=== PATIENT | female | born 1970 | race Caucasian/White ===

== ENCOUNTER 2021-05-09 16:22 | Emergency (ER) | payer OTHER ==
[~2021-05-09] VITALS: Ht 154.9 cm; Wt 736.2 kg
[2021-05-09 16:54] VITALS: BP_SYST 152
[2021-05-09 18:04] LABS: BASOPHILS # (AUTO) 0.1 K/uL (0.0-0.2); BASOPHILS % (AUTO) 0.7 % (0.0-2.0); EOSINOPHILS # (AUTO) 0.3 K/uL (0.0-0.4); EOSINOPHILS % (AUTO) 1.9 % (0.0-4.0); HEMATOCRIT 44.2 % (36-48); HEMOGLOBIN 15.1 g/dL (12.0-16.0); LYMPHOCYTES # (AUTO) 5.2 K/uL (1.0-5.5); LYMPHOCYTES % (AUTO) 33.3 % (20.5-51.5); MEAN CORPUSCULAR HEMOGLOBIN 31 pg (27-31); MEAN CORPUSCULAR HGB CONC 34 % (32-36); MEAN CORPUSCULAR VOLUME 92 fL (79.0-98.0); MONOCYTES # (AUTO) 1.2 K/uL (0.0-1.0); MONOCYTES % (AUTO) 7.5 % (1.7-9.3); NEUTROPHILS # (AUTO) 8.8 K/uL (1.8-7.7); NEUTROPHILS % (AUTO) 56.6 % (40.0-70.0); PLATELET COUNT (AUTO) 294 K/uL (130-430); WHITE BLOOD COUNT (AUTO) 15.6 K/uL (4.8-10.8)
[2021-05-09 18:10] LABS: BILIRUBIN,URINE NEGATIVE (NEGATIVE); BLOOD, URINE 1+ (NEGATIVE); CLARITY/URINE CLEAR (CLEAR); GLUCOSE,URINE NEGATIVE (NEGATIVE); KETONES,URINE NEGATIVE (NEGATIVE); LEUKOCYTE ESTERASE ,URINE NEGATIVE (NEGATIVE); NITRITE, URINE NEGATIVE (NEGATIVE); PROTEIN URINE NEGATIVE (NEGATIVE); UROBILINOGEN,URINE 0.2 (0.2-1.0)
[2021-05-09 18:28] LABS: COLOR,URINE STRAW (YELLOW)
[2021-05-09 18:54] LABS: CALCIUM 9.3 mg/dL (8.4-11.0); CREATININE 0.79 mg/dL (0.55-1.30); POTASSIUM 3.9 mmol/L (3.5-5.1)
[2021-05-09 19:00] LABS: ALBUMIN 4.1 g/dL (3.4-4.8); TOTAL BILIRUBIN 0.3 mg/dL (0.0-1.0)
--- NOTE | 2021-05-09 19:30 | NUR ---
Patient to ER bed HALLWAY 2 to gown for evaluation. Side rails up.
--- NOTE | 2021-05-09 19:35 | NUR ---
DR. GORMAN AT BEDSIDE FOR EVALUATION.
--- NOTE | 2021-05-09 19:41 | NUR ---
PATIENT TAKEN TO CT SCAN VIA WHEELCHAIR BY RADIOLOGY STAFF.
[2021-05-09] MEDS ORDERED: KETOROLAC TROMETHAMINE 60 MG/2 ML VIAL IM ONE (19:45)
--- NOTE | 2021-05-09 19:50 | NUR ---
PATIENT AAOX4 AND AMBULATORY C/O LOWER BACK PAIN D/T INJURY AFTER LIFTING A HEAVY OBJECT. STILL ABLE TO AMBULATE. PAIN DOES NOT RADIATE. INJURY HAPPENED ON SATURDAY. CURRENTLY STATING 8/10 ON THE PAIN SCALE. VSS
--- NOTE | 2021-05-09 20:13 | NUR ---
MEDICATION ADMINISTERED ORDERED.
[2021-05-09 20:35] LABS: BACTERIA,URINE RARE /HPF (None Seen); RBC,URINE 0-3 /HPF (0-3); WBC,URINE NONE SEEN /HPF (0-3)
[2021-05-09] MEDS ORDERED: HYDR-3917 PO (21:21)
[2021-05-09] MEDS ORDERED: IBUP-1969 PO (21:21)
[2021-05-09] MEDS ORDERED: HYDROcodone/ACETAMIN 10-325 MG TAB PO ONE (21:30)
--- NOTE | 2021-05-09 21:31 | NUR ---
DR. GORMAN TO REASSESS PATIENT AT BEDSIDE.
--- NOTE | 2021-05-09 21:36 | NUR ---
MEDICATION ADMINISTERED. AWAITING FOR DISPOSITION.
[2021-05-09 21:46] VITALS: BP_SYST 152
--- NOTE | 2021-05-09 21:47 | NUR ---
Patient given written and verbal discharge instructions and verbalizes understanding. DR. SHERIF CHAIDEZ MD discussed with patient the results and treatment provided. Patient in stable condition. ID arm band removed. Rx of IBUPROFEN, NORCO given. Patient educated on pain management and to follow up with PMD. Pain Scale 0/10. Opportunity for questions provided and answered. Medication side effect fact sheet provided.
== END 2021-05-09 21:46 | disposition home or self-care (01) ==
LOC: SED 16:22
DX: N23 Unspecified renal colic (principal)
CPT/HCPCS: 36415; 74176; 76376; 80053; 81000; 85025; 96372; 99284; J1885

== ENCOUNTER 2022-01-10 14:28 | Emergency (ER) | payer OTHER ==
[~2022-01-10] VITALS: Ht 154.9 cm; Wt 73.0 kg
[~2022-01-10 14:28] MED LIST: HYDR-3917 PO; IBUP-1969 PO
[2022-01-10 14:30] VITALS: BP_SYST 164
--- NOTE | 2022-01-10 14:35 | NUR ---
Patient triaged and placed in waiting room. VSS and patient appears in no acute distress at this time. Accompanied by SELF, awaiting available bed, and MD notified of need for MSE.
--- NOTE | 2022-01-10 15:25 | NUR ---
BROUGHT BACK TO BED #8 AND REPORT GIVEN TO REYES
--- NOTE | 2022-01-10 15:35 | NUR ---
[facility]ED [facility], DR CHANDRA AT BEDSIDE FOR EVALUATION
--- NOTE | 2022-01-10 15:55 | NUR ---
PT STATES SHE HAS HAD A LUMP UNDER RIGHT BREAST FOR LAST 2 MONTHS, PT STATES SHE HAS BEEN TO URGENT CARE AND TAKING MEDS BUT STILL HAS A LUMP. PT STATES PAIN LEVEL A 5/10
[2022-01-10] MEDS ORDERED: LIDOINT TP (16:16)
[2022-01-10] MEDS ORDERED: ACET-2634 PO (16:16)
[2022-01-10] MEDS ORDERED: METH-634 PO (16:16)
--- NOTE | 2022-01-10 16:21 | NUR ---
Patient given written and verbal discharge instructions and verbalizes understanding. ER MD discussed with patient the results and treatment provided. Patient in stable condition. ID arm band removed Rx of TYLENOL XTRA STRENGTH, ROBAXIN, LIDOCAINE given. Patient educated on pain management and to follow up with PMD. Pain Scale 0/10. Opportunity for questions provided and answered. Medication side effect fact sheet provided.
== END 2022-01-10 16:24 | disposition home or self-care (01) ==
LOC: SED 14:28
DX: S29.011A Strain of muscle and tendon of front wall of thorax, initial encounter (principal); Z79.899 Other long term (current) drug therapy; X50.0XXA Overexertion from strenuous movement or load, initial encounter; Y93.89 Activity, other specified; Y92.89 Other specified places as the place of occurrence of the external cause; Y99.8 Other external cause status
CPT/HCPCS: 71100; 99283

== ENCOUNTER 2022-03-04 10:58 | Emergency (ER) | payer OTHER ==
[~2022-03-04] VITALS: Ht 154.9 cm; Wt 73.0 kg
[~2022-03-04 10:58] MED LIST changes: +ACET-2634 PO; +LIDOINT TP; +METH-634 PO
[2022-03-04 11:05] VITALS: BP_SYST 157
--- NOTE | 2022-03-04 11:12 | NUR ---
PT TRIAGED AND PLACED IN ED LOBBY FOR AVAILABLE BED IN MAIN ED, MADE AWARE OF MSE NEEDS
--- NOTE | 2022-03-04 11:15 | NUR ---
ER DR. KONG EXAMINING PT IN TRIAGE
--- NOTE | 2022-03-04 11:39 | NUR ---
PT TO LAB FOR BLOOD DRAW
--- NOTE | 2022-03-04 11:49 | NUR ---
Patient transported to radiology via AMBULATION, accompanied by STAFF.
--- NOTE | 2022-03-04 11:56 | NUR ---
Placed in room 2 . Placed on classroom monitor, blood pressure machine and pulse oximeter. To gown for exam. Side rails up. Report given to GARRY REYNOLDS.
--- NOTE | 2022-03-04 12:00 | NUR ---
MD KONG AT BEDSIDE FOR REASSESS. PT VSS. AWAITING LAB AND URINE RESULTS. WILL CONT TO MONITOR PT.
[2022-03-04 12:10] LABS: BASOPHILS # (AUTO) 0.1 K/uL (0.0-0.2); BASOPHILS % (AUTO) 0.6 % (0.0-2.0); EOSINOPHILS # (AUTO) 0.2 K/uL (0.0-0.4); EOSINOPHILS % (AUTO) 1.4 % (0.0-4.0); HEMATOCRIT 45.1 % (36-48); HEMOGLOBIN 15.5 g/dL (12.0-16.0); LYMPHOCYTES % (AUTO) 23.4 % (20.5-51.5); MEAN CORPUSCULAR HEMOGLOBIN 32 pg (27-31); MEAN CORPUSCULAR HGB CONC 34 % (32-36); MEAN CORPUSCULAR VOLUME 92 fL (79.0-98.0); MONOCYTES # (AUTO) 0.7 K/uL (0.0-1.0); MONOCYTES % (AUTO) 5.4 % (1.7-9.3); NEUTROPHILS # (AUTO) 8.9 K/uL (1.8-7.7); NEUTROPHILS % (AUTO) 69.2 % (40.0-70.0); PLATELET COUNT (AUTO) 276 K/uL (130-430); RED CELL DISTRIBUTION WIDTH 13.2 % (9.0-15.0); WHITE BLOOD COUNT (AUTO) 12.8 K/uL (4.8-10.8)
[2022-03-04 12:12] LABS: BILIRUBIN,URINE 1+ (NEGATIVE); BLOOD, URINE NEGATIVE (NEGATIVE); COLOR,URINE YELLOW (YELLOW); GLUCOSE,URINE NEGATIVE (NEGATIVE); KETONES,URINE TRACE (NEGATIVE); LEUKOCYTE ESTERASE ,URINE NEGATIVE (NEGATIVE); NITRITE, URINE NEGATIVE (NEGATIVE); PROTEIN URINE NEGATIVE (NEGATIVE); UROBILINOGEN,URINE 0.2 (0.2-1.0)
[2022-03-04 12:24] LABS: ANION GAP 5 (5-15); CALCIUM 9.1 mg/dL (8.4-11.0); CHLORIDE 105 mmol/L (98-107); CREATININE 0.86 mg/dL (0.55-1.30); GLUCOSE 94 mg/dL (70-99); POTASSIUM 4.1 mmol/L (3.5-5.1); SODIUM SERUM 139 mmol/L (136-145); UREA NITROGEN, BLOOD 8 mg/dL (8-21)
[2022-03-04 12:28] LABS: CLARITY/URINE HAZY (CLEAR)
[2022-03-04 12:32] LABS: ALANINE AMINOTRANSFERASE 25 U/L (12-78); AMYLASE 45 U/L (0-100); ASPARTATE AMINOTRANSFERASE 21 U/L (10-37); LIPASE 64 U/L (73-393); TOTAL BILIRUBIN 0.5 mg/dL (0.0-1.0)
[2022-03-04 12:36] LABS: GFR AFRICAN AMERICAN 89 mL/min (>90)
[2022-03-04 12:38] LABS: C-REACTIVE PROTEIN QUANT < 0.2 mg/dL (0-0.5)
[2022-03-04 12:52] LABS: BACTERIA,URINE FEW /HPF (None Seen); RBC,URINE 0-3 /HPF (0-3); WBC,URINE 0-3 /HPF (0-3)
[2022-03-04] MEDS ORDERED: TRAM50TA2 PO (13:18)
[2022-03-04] MEDS ORDERED: OMEP20CA15 PO (13:18)
--- NOTE | 2022-03-04 13:25 | NUR ---
PT DISCHARGED GIVEN ACI AND PRESCRIPTION. VSS. NAD NOTED. ALL QUESTIONS ANSWERED. WRIST BAND REMOVED. PT AMBULATED TO EXIT.
[2022-03-04 13:30] VITALS: BP_SYST 138
== END 2022-03-04 13:30 | disposition home or self-care (01) ==
LOC: SED 10:58
DX: N23 Unspecified renal colic (principal); K29.70 Gastritis, unspecified, without bleeding; Z79.899 Other long term (current) drug therapy
CPT/HCPCS: 36415; 76376; 80053; 81000; 82150; 83605; 83690; 84484; 84703; 85025; 86140; 99285

== ENCOUNTER 2022-04-14 09:35 | Emergency (ER) | payer OTHER ==
[~2022-04-14] VITALS: Ht 154.9 cm; Wt 72.6 kg
[~2022-04-14 09:35] MED LIST changes: +OMEP20CA15 PO; +TRAM50TA2 PO
[2022-04-14 09:48] VITALS: BP_SYST 145
--- NOTE | 2022-04-14 09:55 | NUR ---
Patient to ER bed 8 to gown for evaluation. Side rails up. Report given to ANSLEY WONG .
--- NOTE | 2022-04-14 10:00 | NUR ---
Pt presents to the ER BIB self from home. CC Spitting up blood fragments. Bright in color, 2 episodes in past 48 hours. Pt notes pain in left rib cage area below breast line. Pt denies NVD. AAOx4. Skin intact. Even unlabored Respiratory lungs clear. BS+. Pt notes under care of urologist R/T right kidney renal colic. Pt further notes history of smoking quit 2 months ago. Pt notes abnormal CT scans from 2014 and 2021 nodules cited in the lung. Hx Gastritis Bronchitis blood disorder unknown. SX due on 05/21/22- Urology
--- NOTE | 2022-04-14 10:00 | NUR ---
ER at bedside examining patient.
--- NOTE | 2022-04-14 10:18 | NUR ---
Pt ambulates with steady gait to Radiology dept. accompanied by senior occupational therapist.
--- NOTE | 2022-04-14 10:21 | NUR ---
Covid specimen collected from bilateral nares pt yassine well walked over to lab.
[2022-04-14 10:49] LABS: BASOPHILS # (AUTO) 0.1 K/uL (0.0-0.2); BASOPHILS % (AUTO) 0.6 % (0.0-2.0); EOSINOPHILS # (AUTO) 0.4 K/uL (0.0-0.4); EOSINOPHILS % (AUTO) 3.3 % (0.0-4.0); HEMATOCRIT 38.9 % (36-48); HEMOGLOBIN 13.5 g/dL (12.0-16.0); LYMPHOCYTES # (AUTO) 3.9 K/uL (1.0-5.5); LYMPHOCYTES % (AUTO) 32.5 % (20.5-51.5); MEAN CORPUSCULAR HEMOGLOBIN 32 pg (27-31); MEAN CORPUSCULAR HGB CONC 35 % (32-36); MEAN CORPUSCULAR VOLUME 91 fL (79.0-98.0); MONOCYTES # (AUTO) 0.6 K/uL (0.0-1.0); MONOCYTES % (AUTO) 4.7 % (1.7-9.3); NEUTROPHILS # (AUTO) 7.1 K/uL (1.8-7.7); NEUTROPHILS % (AUTO) 58.9 % (40.0-70.0); PLATELET COUNT (AUTO) 324 K/uL (130-430); RED BLOOD CELL COUNT(AUTO) 4.27 MIL/uL (4.2-6.2); RED CELL DISTRIBUTION WIDTH 12.5 % (9.0-15.0)
--- NOTE | 2022-04-14 10:55 | NUR ---
ER at bedside discussing care with patient.
[2022-04-14 11:38] LABS: ALBUMIN 3.7 g/dL (3.4-4.8); CREATININE 0.8 mg/dL (0.55-1.30); POTASSIUM 3.6 mmol/L (3.5-5.1); TOTAL BILIRUBIN 0.4 mg/dL (0.0-1.0)
[2022-04-14] MEDS ORDERED: DOXY100C5 PO (13:22)
--- NOTE | 2022-04-14 13:45 | NUR ---
Patient given written and verbal discharge instructions and verbalizes understanding. ER MD discussed with patient the results and treatment provided. Patient in stable condition. ID arm band removed. Opportunity for questions provided and answered. Medication side effect fact sheet provided.
[2022-04-14] MEDS ORDERED: HYDR-3917 PO (14:13)
[2022-04-14 14:49] LABS: BILIRUBIN,URINE NEGATIVE (NEGATIVE); BLOOD, URINE NEGATIVE (NEGATIVE); CLARITY/URINE CLEAR (CLEAR); COLOR,URINE YELLOW (YELLOW); GLUCOSE,URINE NEGATIVE (NEGATIVE); KETONES,URINE NEGATIVE (NEGATIVE); LEUKOCYTE ESTERASE ,URINE TRACE (NEGATIVE); NITRITE, URINE NEGATIVE (NEGATIVE); PH,URINE 5.5 (5.0-8.0); PROTEIN URINE TRACE (NEGATIVE); UROBILINOGEN,URINE 0.2 (0.2-1.0)
[2022-04-14 15:25] LABS: BACTERIA,URINE RARE /HPF (None Seen); RBC,URINE 0-3 /HPF (0-3)
[2022-04-14 15:33] LABS: CALCIUM 9.2 mg/dL (8.4-11.0)
[2022-04-14 17:01] VITALS: BP_SYST 159
== END 2022-04-14 13:45 | disposition home or self-care (01) ==
LOC: SED 09:35
DX: J18.9 Pneumonia, unspecified organism (principal); R07.81 Pleurodynia; Z79.899 Other long term (current) drug therapy; Z20.822 Contact with and (suspected) exposure to COVID-19
CPT/HCPCS: 36415; 71046-TC; 80053; 81000; 83690; 84484; 85025; 87086; 93005; 99285

== ENCOUNTER 2022-07-18 13:00 | Emergency (ER) | payer OTHER ==
[~2022-07-18] VITALS: Ht 154.9 cm; Wt 68.9 kg
[~2022-07-18 13:00] MED LIST changes: +AUG875 PO; +DOXY100C5 PO
[2022-07-18 13:09] VITALS: BP_SYST 140
[2022-07-18 13:43] LABS: BILIRUBIN,URINE NEGATIVE (NEGATIVE); BLOOD, URINE NEGATIVE (NEGATIVE); CLARITY/URINE CLEAR (CLEAR); COLOR,URINE YELLOW (YELLOW); GLUCOSE,URINE NEGATIVE (NEGATIVE); KETONES,URINE NEGATIVE (NEGATIVE); LEUKOCYTE ESTERASE ,URINE NEGATIVE (NEGATIVE); NITRITE, URINE NEGATIVE (NEGATIVE); PH,URINE 5.5 (5.0-8.0); PROTEIN URINE NEGATIVE (NEGATIVE); UROBILINOGEN,URINE 0.2 (0.2-1.0)
[2022-07-18 14:00] LABS: BASOPHILS # (AUTO) 0.1 K/uL (0.0-0.2); BASOPHILS % (AUTO) 0.7 % (0.0-2.0); EOSINOPHILS # (AUTO) 0.1 K/uL (0.0-0.4); EOSINOPHILS % (AUTO) 0.6 % (0.0-4.0); HEMATOCRIT 44.6 % (36-48); HEMOGLOBIN 15.1 g/dL (12.0-16.0); LYMPHOCYTES % (AUTO) 28.5 % (20.5-51.5); MEAN CORPUSCULAR HEMOGLOBIN 31 pg (27-31); MEAN CORPUSCULAR HGB CONC 34 % (32-36); MEAN CORPUSCULAR VOLUME 91 fL (79.0-98.0); MONOCYTES # (AUTO) 0.7 K/uL (0.0-1.0); NEUTROPHILS # (AUTO) 6.6 K/uL (1.8-7.7); NEUTROPHILS % (AUTO) 63.2 % (40.0-70.0); PLATELET COUNT (AUTO) 275 K/uL (130-430); RED CELL DISTRIBUTION WIDTH 12.7 % (9.0-15.0); WHITE BLOOD COUNT (AUTO) 10.5 K/uL (4.8-10.8)
[2022-07-18 14:19] LABS: CALCIUM 9.8 mg/dL (8.4-11.0); CREATININE 0.77 mg/dL (0.55-1.30)
[2022-07-18 14:25] LABS: ALBUMIN 4.4 g/dL (3.4-4.8); TOTAL BILIRUBIN 0.4 mg/dL (0.0-1.0)
[2022-07-18] MEDS ORDERED: ONDANSETRON 4 MG ODT TAB PO ONE (14:30)
[2022-07-18] MEDS ORDERED: KETOROLAC TROMETHAMINE 60 MG/2 ML VIAL IM ONE (14:30)
[2022-07-18 15:17] LABS: AMYLASE 54 U/L (0-100); LACTATE DEHYDROGENASE 191 U/L (81-234)
[2022-07-18 15:25] LABS: C-REACTIVE PROTEIN QUANT < 0.2 mg/dL (0-0.5)
[2022-07-18 15:57] LABS: ACETONE, SERUM NEGATIVE (NEGATIVE)
[2022-07-18] MEDS ORDERED: ONDA-8 TL (16:27)
[2022-07-18] MEDS ORDERED: HYDR-3917 PO (16:27)
[2022-07-18 16:45] VITALS: BP_SYST 144
== END 2022-07-18 16:49 | disposition home or self-care (01) ==
LOC: SED 13:00
DX: R10.13 Epigastric pain (principal); R11.2 Nausea with vomiting, unspecified; Z79.899 Other long term (current) drug therapy
CPT/HCPCS: 99284; 80053; 82009; 82150; 84703; 83615; 83690; 85025; 86140; 84484; 36415; 74018; 81025; 96372; 83605; 81003; Q0162; J1885